=== PATIENT | female | born 1980 | race Two or more races ===

== ENCOUNTER 2024-06-08 06:12 | Inpatient (IN) | payer OTHER, SELFPAY ==
[2024-05-31 10:30] VITALS: BMI 32.8
[2024-05-31 10:38] LABS: Hematocrit 40.4 % (37.0-47.0); Hemoglobin 13.4 g/dL (12.0-16.0); Mean Corp Hgb Conc. 33.2 g/dL (33.0-37.0); Mean Corpuscular Volume 87.4 fL (81.0-99.0); Mean Platelet Volume 9.4 fL (7.4-10.4); Platelet Count 380 10^3/uL (130-400); Red Blood Cell Count 4.62 10^6/uL (4.20-5.40); Red Cell Dist. Width 13.8 % (11.5-14.5); White Blood Cell Count 11.1 10^3/uL (4.8-10.8)
[2024-05-31 11:05] LABS: Blood Urea Nitrogen 11 mg/dl (7-17); Calcium 9.6 mg/dl (8.4-10.2); Carbon Dioxide 28 mmol/L (22-30); Chloride 103 mmol/L (98-107); Estimated Creatinine Clearance 120 ml/min; Glucose 84 mg/dl (70-99); Sodium 140 mmol/L (135-145); eGFR > 60.00
[2024-06-08] VITALS (17 sets, daily range): BP systolic 1–124; BP diastolic 59–80; BMI 32.8
[2024-06-08] MEDS: NORMOSOL-R/PLASMALYTE-A 1000 IV ×2 (06:45→21:29)
[2024-06-08 06:51] LABS: Glucose - Point of Care 107 mg/dl (70-99)
[2024-06-08] MEDS: TYLENOL 1000 MG PO (07:01)
[2024-06-08 09:49] LABS: Glucose - Point of Care 145 mg/dl (70-99)
[2024-06-08 11:45] LABS: Glucose - Point of Care 152 mg/dl (70-99)
--- NOTE | 2024-06-08 12:51 | W.IMMPOSTOP ---
Surgical Immed Post Op Note
-
Primary Surgeon: Meliza
Assisting Surgeon: Katheryn
Pre-op Diagnosis: Ventral incisional hernia, symptomatic cholelithiasis
Post-op Diagnosis: Ventral incisional hernia, symptomatic cholelithiasis
Procedure Performed: Open ventral incisional hernia repair with mesh, bilateral posterior myofascial releases (TAR), lysis of adhesions, cholecystectomy
Anesthesia Type: General
Specimen / Cultures:
1. Gallbladder
Estimated Blood Loss: 3 cc
Complications: None
Operative Findings:
1. Multiple gabonese cheese ventral incisional hernia defects spanning entire length of prior midline incision as well as a prior ostomy site spanning 12 x 20 cm
2. Lysis of omental adhesions clearing undersurface of abdominal wall
3. Open cholecystectomy performed due to history of vague epigastric and RUQ discomfort in the presence of cholelithiasis, artery taken with clips, duct with 0 silk
4. Bilateral posterior myofascial releases (TAR) complete
5. Intact posterior sheath closed with 2-0 PDS strata fix spiral
6. 40 x 40 cm Prolene soft mesh into retrorectus space, coverage to bilateral flanks, xiphoid, pubis
7. Anterior sheath and prior ostomy defect/hernia closed primarily with #1 PDS strata fix symmetric
8. RIGHT lateral VERÓNICA into retrorectus space, RIGHT medial VERÓNICA into subcutaneous space, LEFT VERÓNICA into retrorectus space
[2024-06-08 13:07] LABS: Glucose - Point of Care 160 mg/dl (70-99)
[2024-06-08] MEDS: DILAUDID 0.25 MG IV ×2 (13:20→14:00)
--- NOTE | 2024-06-08 16:19 | PTCARENOTE ---
Pt arrived to [address] [place] [address] PACU s/p open ventral/incisional hernia repair with mesh, b/l myofascial release, RADHA and cholecystectomy. Pt AAOx3, has midline incision dressing with scant amount of drainage, 3 VERÓNICA drains draining sanguineous, De Jesus in
place draining yellow urine. ABD binder in place. Pt oriented to call delcid and room, bed locked and in lowest position, call delcid within reach.
[2024-06-08 16:54] LABS: Glucose - Point of Care 120 mg/dl (70-99)
[2024-06-08] MEDS: DILAUDID 0.5 MG IV ×3 (17:10→22:45)
[2024-06-08] MEDS: TYLENOL 650 MG PO ×2 (17:11→19:58)
[2024-06-08] MEDS: NORMOSOL-R/PLASMALYTE-A IV (17:25)
[2024-06-08] MEDS: ZANAFLEX 2 MG PO (20:03)
[2024-06-08 21:15] LABS: Glucose - Point of Care 123 mg/dl (70-99)
[2024-06-08] MEDS: NEURONTIN 900 MG PO (21:28)
[2024-06-08] MEDS: ROXICODONE 5 MG PO (21:28)
[2024-06-09] MEDS: TYLENOL PO (00:10)
[2024-06-09] MEDS: DILAUDID 0.5 MG IV ×5 (03:15→21:45)
[2024-06-09] MEDS: TYLENOL 650 MG PO ×5 (03:16→19:47)
[2024-06-09] MEDS: NORMOSOL-R/PLASMALYTE-A 1000 IV ×2 (07:18→17:16)
--- NOTE | 2024-06-09 07:20 | W.PN.GS2 ---
Today's Communication / Plan
-
-- Fulls, monitor for ileus
-- DVT: Lovenox, pending CBC
-- OOB/ambulate
-- De Jesus removed due to void
Assessment / Plan
-
Patient is a 44 yo F POD#1 s/p open ventral incisional hernia repair with mesh, bilateral myofascial releases (TAR), lysis of adhesions
AVSS
Labs pending
VERÓNICA outputs reassuring
Recovering well overall. No major postoperative concerns.
-- Fulls, monitor for ileus
-- IVF
-- Pain control: Tylenol, Toradol, Oxycodone, Gabapentin
-- Home meds
-- DVT: Lovenox, pending CBC
-- OOB/ambulate
-- De Jesus removed due to void
Subjective Data
-
Date of Service: June 09, 2024
Reports abdominal soreness, improved with pain medications. No nausea, vomiting, increased bloating or belching. No flatus or BM. No fevers. De Jesus removed, and due to void. No ambulation.
Objective Data
-
Intake and Output
24 24 06/10/24
06:59 06:59 06:59
Intake Total 2420 / 2420
Output Total 1768 / 1768
Balance 652 / 652
Intake:
Oral fluids 720 / 720
IV fluids (Total) 1700 / 1700
Normosal 500 / 500
Output:
Drain Output (Total) 368 / 368
Left Abdomen Georges-Gaspar A 150 / 150
Right Abdomen Georges-Gaspar B 73 / 73
Right Abdomen Georges-Gaspar C 145 / 145
Urine, De Jesus 1400 / 1400
Vital Signs
Temp Pulse Resp BP Pulse Ox
98.8 F 92 16 116/64 97
12/18/24 23:00 06/08/24 23:00 06/08/24 23:00 06/08/24 23:00 06/08/24 23:00
Calcium 9.6 mg/dl (8.4-10.2) 05/31/24 09:25
Physical Exam
-
Gen: NAD
Abd: soft, appropriately tender, ND, non-peritoneal, JPs with dark bloody output, midline with some shadowing
[2024-06-09 07:40] VITALS: BP 102/57
[2024-06-09] MEDS: PROTONIX 40 MG PO (08:23)
[2024-06-09] MEDS: NEURONTIN 900 MG PO ×3 (08:23→21:43)
[2024-06-09 08:33] LABS: Hematocrit 35.1 % (37.0-47.0); Hemoglobin 11.4 g/dL (12.0-16.0); Mean Corp Hgb Conc. 32.5 g/dL (33.0-37.0); Mean Corpuscular Hgb 29.2 pg (27.0-31.0); Mean Platelet Volume 9.1 fL (7.4-10.4); Platelet Count 263 10^3/uL (130-400); Red Cell Dist. Width 14.3 % (11.5-14.5); White Blood Cell Count 12.7 10^3/uL (4.8-10.8)
[2024-06-09 09:10] LABS: Glucose - Point of Care 120 mg/dl (70-99)
[2024-06-09 09:13] LABS: Blood Urea Nitrogen 7 mg/dl (7-17); Calcium 7.7 mg/dl (8.4-10.2); Carbon Dioxide 28 mmol/L (22-30); Chloride 102 mmol/L (98-107); Estimated Creatinine Clearance > 125 ml/min; Glucose 115 mg/dl (70-99); Potassium 4.3 mmol/L (3.5-5.1); Sodium 135 mmol/L (135-145); eGFR > 60.00
[2024-06-09] MEDS: ROXICODONE 5 MG PO ×2 (09:49→17:15)
--- NOTE | 2024-06-09 10:24 | CM ---
Reviewed the chart notes and spoke with the patient at the bedside. Patient is s/p open ventral incisional hernia repair with mesh, bilateral myofascial releases (TAR), lysis of adhesions. The patient resides with her niece in a third floor
apartment with three flights of steps. The patient reports no DME or SNF in the past, but has had [facility]. The patient confirmed her pharmacy of choice is the [facility]. CM continues to be available to patient/family
and is monitoring medical plan for needs at discharge.
Plan: Discharge plans will depend on the patient's progress.
[2024-06-09 10:26] LABS: Glycohemoglobin (HgbA1c) 5.4 % (4.0-5.6)
[2024-06-09 11:11] VITALS: BP 99/56
[2024-06-09 11:51] LABS: Glucose - Point of Care 147 mg/dl (70-99)
[2024-06-09] MEDS: TORADOL 10 MG IV ×2 (12:32→18:39)
[2024-06-09 15:48] VITALS: BP 108/67
[2024-06-09 17:28] LABS: Glucose - Point of Care 119 mg/dl (70-99)
[2024-06-09] MEDS: LOVENOX 40 MG SC (18:39)
[2024-06-09 19:48] VITALS: BP 105/73
[2024-06-09 22:24] LABS: Glucose - Point of Care 109 mg/dl (70-99)
[2024-06-09 23:48] VITALS: BP 104/67
[2024-06-10] MEDS: ROXICODONE 5 MG PO ×4 (00:01→14:40)
[2024-06-10] MEDS: TORADOL 10 MG IV ×2 (03:26→13:29)
[2024-06-10] MEDS: TYLENOL 650 MG PO ×7 (04:08→23:08)
[2024-06-10 06:34] LABS: Hematocrit 31.5 % (37.0-47.0); Hemoglobin 10.5 g/dL (12.0-16.0); Mean Corp Hgb Conc. 33.3 g/dL (33.0-37.0); Mean Corpuscular Hgb 29.4 pg (27.0-31.0); Mean Corpuscular Volume 88.2 fL (81.0-99.0); Mean Platelet Volume 9.6 fL (7.4-10.4); Platelet Count 256 10^3/uL (130-400); Red Blood Cell Count 3.57 10^6/uL (4.20-5.40); White Blood Cell Count 12.2 10^3/uL (4.8-10.8)
[2024-06-10 06:59] LABS: Blood Urea Nitrogen 9 mg/dl (7-17); Calcium 7.8 mg/dl (8.4-10.2); Carbon Dioxide 27 mmol/L (22-30); Chloride 103 mmol/L (98-107); Estimated Creatinine Clearance > 125 ml/min; Glucose 104 mg/dl (70-99); Potassium 4.1 mmol/L (3.5-5.1); Sodium 134 mmol/L (135-145); eGFR > 60.00
[2024-06-10 07:44] VITALS: BP 114/79
[2024-06-10 07:48] LABS: Glucose - Point of Care 107 mg/dl (70-99)
--- NOTE | 2024-06-10 08:02 | W.PN.GS2 ---
Addendum entered and electronically signed by Kal Haider MD 06/10/24 16:20:
Acute anemia secondary to operative blood loss combined with hemodilution.
Original Note:
Today's Communication / Plan
-
-- LRD
-- Continue with pain management
Assessment / Plan
-
Patient is a 44 yo F POD#2 s/p open ventral incisional hernia repair with mesh, bilateral myofascial releases (TAR), lysis of adhesions
AVSS
Labs with persistent low grade reactive leukocytosis, Hb stable
VERÓNICA outputs reassuring
Recovering well overall. No major postoperative concerns.
-- LRD
-- HLIV
-- Pain control: Tylenol, Toradol, Oxycodone, Gabapentin, IV Dilaudid PRN
-- Home meds
-- DVT: Lovenox
-- OOB/ambulate
Subjective Data
-
Date of Service: June 10, 2024
Pain control improved, slowly improving mobility. Denies nausea or vomiting. Beginning to pass some flatus, no BM. Denies dizziness or lightheadedness. Voiding.
Objective Data
-
Intake and Output
06/09/24 06/10/24 06/11/24
06:59 06:59 06:59
Intake Total 2420 / 2420 3840 / 3840
Output Total 1768 / 1768 1040 / 1040
Balance 652 / 652 2800 / 2800
Intake:
Oral fluids 720 / 720 1440 / 1440
IV fluids (Total) 1700 / 1700 2400 / 2400
Normosal 500 / 500
Output:
Drain Output (Total) 368 / 368 490 / 490
Left Abdomen Georges-Gaspar A 150 / 150 140 / 140
Right Abdomen Georges-Gaspar B 73 / 73 170 / 170
Right Abdomen Georges-Gaspar C 145 / 145 180 / 180
Urine, De Jesus 1400 / 1400
Urine, Voided 550 / 550
Other:
Number of approximated MODERATE 2
amounts of urine
Vital Signs
Temp Pulse Resp BP Pulse Ox
98.5 F 84 17 114/79 98
06/10/24 07:44 06/10/24 07:44 06/10/24 07:44 06/10/24 07:44 06/10/24 07:44
Lab Results
06/10/24 05:52
06/10/24 05:52
Calcium 7.8 mg/dl (8.4-10.2) L 06/10/24 05:52
Physical Exam
-
Gen: NAD
Abd: soft, tender to palpation, ND, non-peritoneal, midline dressing with some shadowing, JPs serosang
[2024-06-10] MEDS: NEURONTIN 900 MG PO ×3 (09:09→22:08)
[2024-06-10] MEDS: PROTONIX 40 MG PO (09:10)
[2024-06-10] MEDS: DILAUDID 0.5 MG IV (09:12)
--- NOTE | 2024-06-10 09:46 | CM ---
Patient seen at bedside.
Interested in home health upon d/c
Discussed options - she stated she had [facility] in past.
Referral entered in [facility]
PLAN: home with VN when medically stable
[2024-06-10 11:53] LABS: Glucose - Point of Care 149 mg/dl (70-99)
[2024-06-10 15:31] VITALS: BP 111/67
--- NOTE | 2024-06-10 16:08 | PN.CDI ---
CDI
- -
CDI:
Physician Documentation Request
Admit Date: 06/08/24 06:12
Dear Doctor Meliza,
Patient admitted with ventral incisional hernia and symptomatic cholelithiasis s/p open ventral incisional hernia repair with mesh, bilateral posterior myofascial releases (TAR), lysis of adhesions, cholecystectomy.
Hgb levels documented below:
Laboratory Tests
05/31/24 06/09/24 06/10/24
09:25 08:17 05:52
Hgb 13.4 11.4 L 10.5 L
Based on the above, please clarify, in your progress note, which of the following is the most likely diagnosis you are evaluating, monitoring and/or treating?
Acute blood loss anemia
Insignificant abnormal lab finding
Other
Use of terms such as suspected, likely, concern for, or probable (associated with a specific diagnosis that is being evaluated, monitored, or treated as if it exists) are acceptable and can be coded in the inpatient setting, when documented at the
time of discharge.
Thank you,
Malinda LU,RN,CCDS
CDI Specialist
Available via [employer] text
Please use your independent medical judgment in providing your response.
[2024-06-10 16:31] LABS: Glucose - Point of Care 153 mg/dl (70-99)
[2024-06-10] MEDS: LOVENOX 40 MG SC (17:26)
[2024-06-10] MEDS: ROXICODONE 10 MG PO ×2 (18:40→23:15)
[2024-06-10 21:25] LABS: Glucose - Point of Care 102 mg/dl (70-99)
[2024-06-10 23:46] VITALS: BP 109/74
[2024-06-11] MEDS: TORADOL 10 MG IV ×3 (00:56→16:22)
[2024-06-11] MEDS: ZANAFLEX 2 MG PO ×3 (00:59→17:50)
[2024-06-11] MEDS: TYLENOL 650 MG PO ×5 (04:13→20:56)
[2024-06-11] MEDS: ROXICODONE 10 MG PO ×4 (06:12→22:30)
[2024-06-11 07:55] VITALS: BP 134/72
[2024-06-11 08:04] LABS: Glucose - Point of Care 102 mg/dl (70-99)
[2024-06-11 08:49] LABS: Hemoglobin 10.2 g/dL (12.0-16.0); Mean Corp Hgb Conc. 31.9 g/dL (33.0-37.0); Mean Corpuscular Hgb 28.8 pg (27.0-31.0); Mean Corpuscular Volume 90.4 fL (81.0-99.0); Mean Platelet Volume 9.2 fL (7.4-10.4); Platelet Count 286 10^3/uL (130-400); Red Blood Cell Count 3.54 10^6/uL (4.20-5.40); Red Cell Dist. Width 14.1 % (11.5-14.5); White Blood Cell Count 9.6 10^3/uL (4.8-10.8)
[2024-06-11] MEDS: NEURONTIN 900 MG PO ×3 (09:20→20:56)
[2024-06-11] MEDS: PROTONIX 40 MG PO (09:21)
[2024-06-11] MEDS: MIRALAX 17 GRAMS PO (09:22)
--- NOTE | 2024-06-11 09:40 | W.PN.GS2 ---
Today's Communication / Plan
-
-- Restart Metformin
-- Dispo planning, tentative plan for DC tomorrow
Assessment / Plan
-
Patient is a 44 yo F POD#3 s/p open ventral incisional hernia repair with mesh, bilateral myofascial releases (TAR), lysis of adhesions
AVSS
Leukocytosis resolved, Hb stable
VERÓNICA outputs reassuring
Recovering well overall. No major postoperative concerns.
-- LRD
-- HLIV
-- Pain control: Tylenol, Toradol, Oxycodone, Gabapentin, IV Dilaudid PRN
-- Home meds, restart Metformin
-- DVT: Lovenox
-- OOB/ambulate
-- Tentative plan for DC tomorrow
Subjective Data
-
Date of Service: June 11, 2024
No complaints. Pain control improving. No nausea or vomiting. Passing increased flatus, no BM. Ambulating. Voiding.
Objective Data
-
Intake and Output
06/10/24 06/11/24 06/12/24
06:59 06:59 06:59
Intake Total 3840 / 3840 240 / 240
Output Total 1040 / 1040 320 / 320
Balance 2800 / 2800 -80 / -80
Intake:
Oral fluids 1440 / 1440 240 / 240
IV fluids (Total) 2400 / 2400
Output:
Drain Output (Total) 490 / 490 320 / 320
Left Abdomen Georges-Gaspar A 140 / 140 55 / 55
Right Abdomen Georges-Gaspar B 170 / 170 65 / 65
Right Abdomen Georges-Gaspar C 180 / 180 200 / 200
Urine, Voided 550 / 550
Other:
Number of approximated MODERATE 2 2
amounts of urine
Number of approximated LARGE 1
amounts of urine
Vital Signs
Temp Pulse Resp BP Pulse Ox
98.5 F 74 16 134/72 99
06/11/24 07:55 06/11/24 07:55 06/11/24 07:55 06/11/24 07:55 06/11/24 07:55
Lab Results
06/11/24 08:43
06/10/24 05:52
Calcium 7.8 mg/dl (8.4-10.2) L 06/10/24 05:52
Physical Exam
-
Gen: NAD
Abd: soft, appropriately tender, ND, non-peritoneal, incision c/d/i - no erythema, ecchymosis or drainage, no palpable hernia, JPs serosang, binder replaced
--- NOTE | 2024-06-11 11:16 | CM ---
Patient seen at bedside, Patient stated if [facility] unable to accept she could change to [facility]. [facility] accepted and patient for possible discharge. [facility] is for transport home. CM will continue to follow for discharge planning needs.
Plan; home with [facility].
[2024-06-11 11:59] LABS: Glucose - Point of Care 135 mg/dl (70-99)
[2024-06-11 15:50] VITALS: BP 117/77
[2024-06-11 16:55] LABS: Glucose - Point of Care 103 mg/dl (70-99)
[2024-06-11] MEDS: LOVENOX 40 MG SC (17:52)
[2024-06-11 22:26] LABS: Glucose - Point of Care 147 mg/dl (70-99)
[2024-06-11] MEDS: TYLENOL PO (23:49)
[2024-06-11 23:52] VITALS: BP 116/72
[2024-06-12] MEDS: TORADOL 10 MG IV ×2 (01:40→09:02)
[2024-06-12] MEDS: TYLENOL PO (04:00)
[2024-06-12] MEDS: ROXICODONE 10 MG PO ×3 (06:27→16:10)
[2024-06-12 07:40] VITALS: BP 125/85
[2024-06-12 08:08] LABS: Glucose - Point of Care 110 mg/dl (70-99)
--- NOTE | 2024-06-12 08:43 | W.PN.GS2 ---
Addendum entered and electronically signed by Kal Haider MD 06/12/24 08:54:
Patient seen and examined. Agree with assessment plan as documented below.
Pain well-controlled. Tolerating diet. Passing flatus and moving bowels. Ambulating.
Gen: NAD
Abd: soft, mild tenderness (improved), ND, non-peritoneal, incision c/d/i - no erythema, ecchymosis or drainage, JPs serosang
Patient is a 44 yo F POD#4 s/p open ventral incisional hernia repair with mesh, bilateral myofascial releases (TAR), lysis of adhesions
AVSS
VERÓNICA outputs reassuring
Evidence of good bowel recovery
Recovering well overall. No major postoperative concerns.
-- LRD
-- Pain control: Tylenol, Toradol, Oxycodone, Gabapentin, IV Dilaudid PRN
-- Home meds resumed
-- DVT: Lovenox
-- OOB/ambulate
-- CM following for VNA arrangements
-- Continue VERÓNICA drains upon discharge
-- Tentative plan for DC later today
Original Note:
Today's Communication / Plan
-
Dispo planning
Assessment / Plan
-
Patient is a 44 yo F POD#4 s/p open ventral incisional hernia repair with mesh, bilateral myofascial releases (TAR), lysis of adhesions
AVSS
VERÓNICA outputs reassuring
Evidence of good bowel recovery
Recovering well overall. No major postoperative concerns.
-- LRD
-- Pain control: Tylenol, Toradol, Oxycodone, Gabapentin, IV Dilaudid PRN
-- Home meds resumed
-- DVT: Lovenox
-- OOB/ambulate
-- CM following for VNA arrangements
-- Continue VERÓNICA drains upon discharge
-- Tentative plan for DC later today
Subjective Data
-
Date of Service: June 12, 2024
Patient seen and examined at bedside with Dr. Haider. Denies n/v. Tolerating diet. Passing flatus and had a small BM this am. Pain present but gradually improving and well controlled with oxycodone
Objective Data
-
Intake and Output
06/11/24 06/12/24 06/13/24
06:59 06:59 06:59
Intake Total 240 / 240 1800 / 1800
Output Total 320 / 320 103 / 103
Balance -80 / -80 1697 / 1697
Intake:
Oral fluids 240 / 240 1800 / 1800
Output:
Drain Output (Total) 320 / 320 103 / 103
Left Abdomen Georges-Gaspar A 55 / 55 30 / 30
Right Abdomen Georges-Gaspar B 65 / 65 13 / 13
Right Abdomen Georges-Gaspar C 200 / 200 60 / 60
Other:
Number of approximated MODERATE 2 2
amounts of urine
Number of approximated LARGE 1 1
amounts of urine
Vital Signs
Temp Pulse Resp BP Pulse Ox
98.2 F 81 16 125/85 97
06/12/24 07:40 06/12/24 07:40 06/12/24 07:40 06/12/24 07:40 06/12/24 07:40
Lab Results
06/11/24 08:43
06/10/24 05:52
Calcium 7.8 mg/dl (8.4-10.2) L 06/10/24 05:52
Physical Exam
-
Gen: NAD
Abd: soft, appropriately tender, ND, non-peritoneal, incision c/d/i - no erythema, ecchymosis or drainage, no palpable hernia, JPs serosang, binder replaced
[2024-06-12] MEDS: NEURONTIN 900 MG PO ×2 (08:51→16:05)
[2024-06-12] MEDS: TYLENOL 650 MG PO ×3 (08:51→16:05)
[2024-06-12] MEDS: MIRALAX 17 GRAMS PO (08:52)
[2024-06-12] MEDS: PROTONIX 40 MG PO (08:52)
--- NOTE | 2024-06-12 10:44 | CM ---
Patient for discharge home today, working on ride home. [facility] to follow. CM will continue to follow for discharge planning needs.
Plan; home with [facility]
[2024-06-12 11:09] VITALS: BP 127/76; PULSE 76
[2024-06-12 12:29] LABS: Glucose - Point of Care 160 mg/dl (70-99)
--- NOTE | 2024-06-12 15:36 | W.DCSUMMARY ---
Discharge Summary
Discharge Data
Date of Admission: 06/08/24
Date of Discharge: 06/12/24
-
Pending Results: No
Hospital Course
Ms Johnson is a 44 yo female with a history of symptomatic cholelithiasis and ventral incisional hernia who presented for operative management with open ventral incisional hernia repair with mesh, bilateral myofascial release (TAR), lysis of adhesions
and cholecystectomy preformed. She tolerated the procedure well with good bowel recovery post operatively. Her diet was able to be advanced and well tolerated. Pain control was able to be achieved with oral agents prior to discharge. She was
evaluated by PT prior to discharge and cleared to return to home with arrangements made for home health care. She was discharged with [address] in [address] for outpatient removal in the coming 1-2 weeks.
Discharge Plan
-
Patient Disposition: Home (Routine Discharge)
Discharge Diagnosis/Procedures: Open ventral hernia repair with cholecystectomy
Condition: Good
Diet: Low Fiber
Additional Diets: Eat a low fat diet if you notice persistent loose stools
Activity: No strenuous activity
Additional Activity: Do not lift over 15lbs for the next 6 weeks
Driving Restrictions: Wait until off narcotics/comfortable twisting
Bathing Restrictions: OK to Shower
Other Services: VN and PT
Wound Care: Cover your incision with gauze pad and wear abdominal binder for support.
Keep clean gauze over your drains. Ok to remove for showers and then apply new dressing after you have gently towel dried the skin. Change daily and as needed.
Call the office to have your drains removed when the drainage is below 25ml a day from each drain for 2 days in a row
Activity Restrictions/Additional Instructions:
Call your surgeon if you have fever >100.5
Instructions: How to care for a closed suction drain
Referrals:
Kal Haider MD [Active] - in one week (Call your drain removal)
Prescriptions:
New
oxycodone 5 mg tablet
10 mg PO Q6 PRN (Reason: severe pain) Qty: 40 0RF
Rx Instructions:
Take 1-2 tablets for severe pain as needed
acetaminophen [acetaminophen] 325 mg tablet
650 mg PO Q4HPRN PRN (Reason: mild pain) Qty: 1 0RF
Continued
multivitamin Tablet
1 tab PO DAILY
tizanidine 2 mg Tablet
2 - 4 mg PO Q8H PRN (Reason: muscle spasms)
ibuprofen 800 mg Tablet
800 mg PO Q6H PRN (Reason: pain)
fexofenadine 180 mg Tablet
180 mg PO DAILY PRN (Reason: allergy symptoms)
triamcinolone acetonide 0.025 % Cream
1 applic TOPICAL BID PRN (Reason: psoriasis flare)
metformin 1,000 mg Tablet
1,000 mg PO QPM
magnesium 250 mg Tablet
250 mg PO DAILY
benzoyl peroxide 5 % Cleanser
1 applic TOPICAL AMHS PRN (Reason: psoriasis flare)
mometasone 0.1 % Cream
1 applic TOPICAL DAILY PRN (Reason: scalp irritation)
omeprazole 20 mg Tablet,Delayed Release (Dr/Ec)
20 mg PO DAILY
Mounjaro 10 mg/0.5 mL Pen Injector
10 mg SC QWEEK
gabapentin 900 mg Tablet Extended Release 24 Hr
900 mg PO TID
Extra Strength Vitamin C
500 mg PO DAILY
Immune Plus
1 dose PO DAILY
Medical Cannibus
1 dose inhalation PRN PRN (Reason: anxiety, PTSD, sleep)
Probiotic
1 dose PO PRN PRN (Reason: bowel health)
Discharge Orders:
Discharge Patient (As Directed); Ordered 06/12/24
Ordered By: Angella Ramirez
Discharge Date and Time
Print Language: QATARI
[2024-06-12 15:50] VITALS: BP 137/86
== END 2024-06-12 17:13 | disposition home health service (06) | DRG 415 ==
LOC: 2 SOUTH 06:12
PROVIDERS: ADMITTING PHYSICIAN Surgery; FAMILY PHYSICIAN Obstetrics & Gynecology
PROC: 0FT40ZZ Resection of Gallbladder, Open Approach (ICD-10-PCS; 2024-06-08)
PROC: 0KNL0ZZ Release Left Abdomen Muscle, Open Approach (ICD-10-PCS; 2024-06-08)
PROC: 0WUF0JZ Supplement Abdominal Wall with Synthetic Substitute, Open Approach (ICD-10-PCS; 2024-06-08)
PROC: 0KNK0ZZ Release Right Abdomen Muscle, Open Approach (ICD-10-PCS; 2024-06-08)
DX: K80.20 Calculus of gallbladder without cholecystitis without obstruction (principal); D62 Acute posthemorrhagic anemia; K43.2 Incisional hernia without obstruction or gangrene; E11.9 Type 2 diabetes mellitus without complications; K21.9 Gastro-esophageal reflux disease without esophagitis; Z79.84 Long term (current) use of oral hypoglycemic drugs; L40.9 Psoriasis, unspecified; E66.9 Obesity, unspecified; Z68.32 Body mass index [BMI] 32.0-32.9, adult; Z90.49 Acquired absence of other specified parts of digestive tract; Z79.899 Other long term (current) drug therapy; Z79.85 Long-term (current) use of injectable non-insulin antidiabetic drugs; Z87.891 Personal history of nicotine dependence
CPT/HCPCS: 88304; 36415; 80048; 82962; 83036; 85027; 93005; 97116; 97162; 97530; C1776; C1781